=== PATIENT | female | born 1985 ===

== ENCOUNTER 2018-02-15 23:28 | Emergency (ER) | payer OTHER ==
--- NOTE | 2018-02-16 09:11 | OBHP ---
Datetime: 02/16/2018 00:12 IP Adm Impression: Term, intrauterine IP Admit Plan: Observation/Evaluation; Discharge home Admit Comment, IP Provider: 32 y/o at EGA 40.5 by LMP with TAIWO past 02/11/18, schedule d for induction on 02/19/18 who presents to [facility] with c/o pelvic pain and uterine Contx intermittent since 7 AM happening Q6 minutes, patient also reports brownish spotting and mucus vaginal discharge t felicita. Patient reports +FM. Patient denies LOF, vaginal bleeding, MARQUEZ, CP, blurry vision, dysuria, feve rs, N/V or other acute complaint. ROS: All systems reviewed and found unremarkable, except as per HPI. provider: Dr Garland Allergies: NKA PMHx: denies FMHx: Denies SUrgHx: none SOCHx: Denies ETOH, smoking or drug use MEDS: PNVit, Valacyclovir 500 QD( h/o genital herpes 3 years ago) LABS: 11/20/17: HIV neg, RPR neg, HB 5/7 ng, Rubella +/immune, GC/CL neg 5/7, GBS neg on 01/15 TDap 12/04, Blood O+ A/P 32 y/o at EGA 40.5 by LMP with TAIWO past 02/11/18, scheduled for induction on 8, Pelvic exam by Attending Dr Obregon with 1cm of cervical dilation. Patient is early Labor [facility] observation for: -Monitor maternal contraction and VS -Monitor FHR Patient to be sent home, instructed to return if CONTX increases Case discussed with attending Dr Mindi Chew MD PGY1 Extremities - PN: Normal Abdomen - PN: Normal Breast - PN: Not Done Heart - PN: Normal Thyroid - PN: Not Done Neurologic - PN: Normal HEENT - PN: Normal General - PN: Normal Comments, ACOG Physical Exam: Pelvic exam performed by attending IP Hx Assessment: The History has been Reviewed and is Current EGA AdmitDate IP: 40.5 IP Chief Complaint: Uterine contractions Dilatation, Provider: 1
[2018-02-16 09:49] VITALS: BP 144/85; PULSE 59
== END 2018-02-16 01:15 | disposition home or self-care (01) ==
LOC: H.EROB2 23:28
DX: O26.93 Pregnancy related conditions, unspecified, third trimester (principal); R10.2 Pelvic and perineal pain; O48.0 Post-term pregnancy; Z3A.40 40 weeks gestation of pregnancy

== ENCOUNTER 2018-02-17 03:33 | Inpatient (IN) | payer OTHER ==
[2018-02-17 07:45] VITALS: BMI 31.1
[2018-02-17] MEDS ORDERED: Lactated Ringer's 1,000 ML IV SCH (07:45)
--- NOTE | 2018-02-17 07:47 | OBHP ---
Datetime: 02/17/2018 04:16 IP Adm Impression: Term, intrauterine IP Admit Plan: Observation/Evaluation Admit Comment, IP Provider: 32 y/o at EGA 40.6 by LMP with TAIWO past 02/11/18, schedule d for induction on 02/19/18 who presents to [facility] with c/o pelvic pain and uterine Contx that has incr eased in frequency and intensity since yesterday around 7PM happening Q5 minutes now. Patient was exa mined yesterday in the tear down man hrs found to have 1 cm cervical dilation and was sent home with instructions to return if CONTX and pain increased. Patient reports vaginal spotting with mucus, but states she is unclear of LOF. Patient reports +FM. Patient denies MARQUEZ, CP, blurry vision, dysuria, fev ers, N/V or other acute complaint. ROS: All systems reviewed and found unremarkable, except as per HPI. provider: Dr Garland Allergies: NKA PMHx: denies FMHx: Denies SUrgHx: none SOCHx: Denies ETOH, smoking or drug use MEDS: PN Vitamin, Valacyclovir 500 QD (h/o genital herpes 3 years ago) LABS: 11/20/17: HIV neg, RPR neg, HB 5/7 ng, Rubella +/immune, GC/CL neg 01/15, GBS neg on 01/15 TDap 12/04, Blood O+ A/P 32 y/o at EGA 40.6 by LMP with TAIWO past 02/11/18, scheduled for induction on 8, presenting with uterine contx Q5min, 2cm of cervical dilation and 80% effacement, in early Labor -Monitor maternal contraction and VS -Monitor FHR Case discussed with attending Kelsie Chew MD PGY1 Addendum by Dr. Linder: I have evaluated the patient independently and I agree with the above. The patient has made cervical change to 4/80/-2, very uncomfortable. FHR = 145 mod noemí, TOCO = ctxning q 2-3 mins. Patient is in labor, will admit patient to unit Extremities - PN: Normal Abdomen - PN: Normal Breast - PN: Not Done Lungs - PN: Normal Heart - PN: Normal HEENT - PN: Normal General - PN: Normal Presentation-Admit: Vertex FHR - Baseline A Provider: 130-140s Comments, ACOG Physical Exam: Abdomen: Gravid IP Hx Assessment: The History has been Reviewed and is Current EGA AdmitDate IP: 40.6 Vital Signs Provider: Reviewed; Within Normal Limits IP Chief Complaint: Uterine contractions Dilatation, Provider: 2 Effacement, Provider: 80
[2018-02-17] MEDS: Lactated Ringer's 1,000 ML IV SCH (08:00)
[2018-02-17 08:38] LABS: BASO % 0.4 % (0.0-2.0); EOS % 0.1 % (0.0-4.0); HEMOGLOBIN 12.5 g/dL (12.0-16.0); LYMPH # 1.8 K/uL (1.0-4.3); LYMPH % 15.5 % (20.0-40.0); MEAN CELL VOLUME 93.9 fl (81.0-99.0); MEAN CORPUSCULAR HEMOGLOBIN 30.7 pg (27.0-31.0); MEAN CORPUSCULAR HGB CONC 32.7 g/dL (33.0-37.0); MEAN PLATELET VOLUME 10.6 fl (7.2-11.7); MONO # 0.8 K/uL (0.0-0.8); MONO % 6.8 % (0.0-10.0); NEUT % 77.2 % (50.0-75.0); RBC 4.06 Mil/uL (3.80-5.20); RED CELL DISTRIBUTION WIDTH 15.2 % (11.5-14.5); WHITE BLOOD COUNT 11.7 K/uL (4.8-10.8)
[2018-02-17] MEDS ORDERED: Oxytocin 30 UNIT 30 UNITS/500 ML BAG IV ONE ×2 (09:27→11:56)
[2018-02-17] MEDS ORDERED: OXYTOCIN/0.9 % NS 20 UNIT/1,000 ML BAG IV SCH (09:30)
--- NOTE | 2018-02-17 11:59 | OBPN ---
Datetime: 02/17/2018 11:54 IP Progress Impression: Reassuring heart rate IP Progress Plan: Augmentation; Anticipate Vaginal Delivery Membranes, Provider: Ruptured Contraction Comments Provider: OCC FHR - Baseline A Provider: 135 Presentation-Admit: Vertex IP Progress Note Comment: She feels more CTX; using nirtous oxide (enough for now acc to pt) Latnet phase of labor PLAN: will start Pitocin augmentation/disucsed pt to try nipple stimulation NICHD Accel Fetus A IP Provider: 15X15 FHR Category Provider Fetus A: Category I NICHD Variability Prov Fetus A: Moderate 6-25bpm Dilatation, Provider: 4 Effacement, Provider: 80 Station, Provider: -1 NICHD Decel Fetus A IP Provider: None Datetime: 02/17/2018 09:30 IP Informed Consent Obtain: Vaginal Delivery; Risks, Benefits and Alternatives Discussed IP Procedures: Artificial ROM Pool Provider: Negative Amniotic Fluid Color, Provider: Clear Datetime: 02/17/2018 04:16 Vital Signs Provider: Reviewed; Within Normal Limits
--- NOTE | 2018-02-17 19:56 | OBPN ---
Datetime: 02/17/2018 19:50 IP Progress Impression: Normal progression of labor; Reassuring heart rate IP Progress Plan: Augmentation; Anticipate Vaginal Delivery Membranes, Provider: Ruptured Contraction Comments Provider: 2-3m FHR - Baseline A Provider: 135 Presentation-Admit: Vertex IP Progress Note Comment: She feels CTX pain; using Nitrous with relief She was 8-9cm at 18:00pm SVE Anterior lip Pitocin at 2miu/h Monitor labor progress Active phase of labor NICHD Accel Fetus A IP Provider: 15X15 FHR Category Provider Fetus A: Category I NICHD Variability Prov Fetus A: Moderate 6-25bpm Dilatation, Provider: 9 Effacement, Provider: 100 Station, Provider: 0 NICHD Decel Fetus A IP Provider: None Datetime: 02/17/2018 16:30 IP Procedures: Intrauterine Pressure Catheter IP Fetus A Comments: 140 Gestation - Est Wks by US: 40.6 Vital Signs Provider: Reviewed; Within Normal Limits
[2018-02-18] MEDS ORDERED: ceFAZolin IV 2 gm in Dextrose 2 GM/50 ML BAG IVPB ONE ×2 (00:07→00:08)
--- NOTE | 2018-02-18 00:12 | OBPN ---
Datetime: 02/18/2018 00:05 IP Progress Impression: Arrest of dilatation/descent IP Informed Consent Obtain: Section Delivery; Risks, Benefits and Alternatives Discussed IP Progress Plan: Deliver- Section Membranes, Provider: Ruptured Contraction Comments Provider: 2-3m FHR - Baseline A Provider: 130 IP Progress Note Comment: She was fully/pushng since 21:00pm. Pitocin was increased until CTX q2-3m (currently at 8miu/h). Failure of descent PLAN: with translaoting service, condition and procedure explained to patient and her . In formed consent obtained. Prep for OR NICHD Accel Fetus A IP Provider: 15X15 FHR Category Provider Fetus A: Category II NICHD Variability Prov Fetus A: Minimal - Undetectable to <5bpm Dilatation, Provider: 10 Effacement, Provider: 100 Station, Provider: 1 NICHD Decel Fetus A IP Provider: Early
[2018-02-18] MEDS: Lactated Ringer's 1,000 ML IV SCH ×2 (00:15→00:50)
[2018-02-18] MEDS ORDERED: ePHEDrine 50 mg/ml Inj ONE (00:29)
[2018-02-18] MEDS ORDERED: Morphine 1 mg/ml preservative-free Inj(Duramorph) ONE (00:29)
[2018-02-18] MEDS ORDERED: Phenylephrine 10 mg/ml Inj ONE (00:30)
[2018-02-18] MEDS ORDERED: DiphenhydrAMINE 50 mg/ml Inj IVP PRN ×2 (01:18→04:51)
[2018-02-18] MEDS ORDERED: Oxycodone/Acetaminophen 5/325 mg Tab PO PRN ×3 (01:54→04:51)
[2018-02-18] MEDS ORDERED: Lactated Ringer's 1,000 ML IV SCH ×2 (02:00→04:51)
[2018-02-18] MEDS ORDERED: Simethicone 80 mg Chewtab PO SCH ×2 (04:00)
[2018-02-18] MEDS: Simethicone 80 mg Chewtab PO SCH ×4 (05:00→22:21)
[2018-02-18 08:33] LABS: HEMOGLOBIN 9.2 g/dL (12.0-16.0); MEAN CELL VOLUME 94.3 fl (81.0-99.0); MEAN CORPUSCULAR HEMOGLOBIN 30.9 pg (27.0-31.0); MEAN CORPUSCULAR HGB CONC 32.8 g/dL (33.0-37.0); RBC 2.98 Mil/uL (3.80-5.20); RED CELL DISTRIBUTION WIDTH 15.2 % (11.5-14.5); WHITE BLOOD COUNT 14.1 K/uL (4.8-10.8)
[2018-02-18] MEDS ORDERED: Multivitamin With Minerals Tab PO SCH ×2 (09:00)
[2018-02-18] MEDS: Multivitamin With Minerals Tab PO SCH (09:44)
[2018-02-19] MEDS ORDERED: Bisacodyl 5mg EC Tab PO PRN ×2 (01:54)
[2018-02-19] MEDS: Simethicone 80 mg Chewtab PO SCH ×4 (04:07→21:24)
[2018-02-19 06:57] LABS: BASO # 0.1 K/uL (0.0-0.2); BASO % 0.6 % (0.0-2.0); EOS # 0.1 K/uL (0.0-0.7); EOS % 0.6 % (0.0-4.0); HEMOGLOBIN 9.7 g/dL (12.0-16.0); LYMPH # 1.8 K/uL (1.0-4.3); LYMPH % 14.5 % (20.0-40.0); MEAN CELL VOLUME 92.5 fl (81.0-99.0); MEAN CORPUSCULAR HEMOGLOBIN 30.6 pg (27.0-31.0); MEAN CORPUSCULAR HGB CONC 33.1 g/dL (33.0-37.0); MEAN PLATELET VOLUME 9.9 fl (7.2-11.7); MONO # 1.2 K/uL (0.0-0.8); MONO % 9.3 % (0.0-10.0); NEUT # 9.5 K/uL (1.8-7.0); RBC 3.15 Mil/uL (3.80-5.20); RED CELL DISTRIBUTION WIDTH 15.6 % (11.5-14.5); WHITE BLOOD COUNT 12.7 K/uL (4.8-10.8)
[2018-02-19] MEDS: Multivitamin With Minerals Tab PO SCH (08:38)
--- NOTE | 2018-02-19 11:03 | OBPPN ---
Datetime: 02/19/2018 07:48 PP Pain Prov: Within normal limits PP Nausea Prov: Denies PP Flatus Prov: No PP BM Prov: No PP Breasts Prov: Not Done PP Heart Prov: Normal PP Lungs Prov: Normal PP Abdomen/Uterus Prov: Normal PP Lochia Prov: Normal PP Vulva/Perineum Prov: Not Done PP CVA Tenderness Prov: Normal PP Extremities Prov: Normal PP C/S Incision Prov: Normal PP Progress Prov: Normal PP Impression Prov: Normal progression PP Progress Note Prov: S: 32 yo s/p on 02/18/2018 due to failure of descent. Patient i s seen and examined at bedside this morning. No overnight events. Pt reports mild abdominal pain, but well controlled with pain meds. D/c perales, dressing clean, dry, intact. No nausea, advised to advanc e diet as tolerated.Unable to breast feed due to failure of desend of milk. Lochia is similar to mens es volume. PT have passed BM/gas and voided. Denies fever/chills, diarrhea, nausea/vomiting, chest pa in, dyspnea, and dizziness. O: Vitally stable GEN: Patient is resting comfortably in bed and is in no acute distress. Cardio: S1S2, no murmurs, gallops or rubs. Lungs: clear air entry sounds b/l, no wheezing Abdomen: BS+, tenderness to palpation. Incision scar noted, well healing with no exudate seen, dry and intact. Uterus is firm and at the level of the umbilicus. EXT: No edema, calves non-tender NEURO/PSYCH: AAOx3 Assessment/Plan: 32 yo s/p on 02/18/18 due to failure of descent. Pt remains afebril e, tolerating pain with medication, doing well on POD#1. OOB with caution 1. SCDs for DVT prophylaxis, encouraged ambulating 2. Percocet 5/325mg Q4H prn, and Motrin 600mg Q8H for pain. 3. Dulocolax 10 mg po Daily PRN for constipation 4. Colace 100mg po BID 5. Post op CBC: 9.2/28.1 6. Remove dressing 6. Anticipated d/c to home, 02/21/2018. Vital Signs Provider PP: Reviewed; Within Normal Limits
[2018-02-20] MEDS: Multivitamin With Minerals Tab PO SCH (08:21)
--- NOTE | 2018-02-20 08:34 | OP ---
PROCEDURE DATE: 02/18/2018 PREOPERATIVE DIAGNOSES: 1. Intrauterine at term. 2. Failure of descent. POSTOPERATIVE DIAGNOSES: 1. Intrauterine at term. 2. Failure of descent. PROCEDURE: Primary low transverse section via Pfannenstiel incision. SURGEON: David Lora DO. LANGUAGE ASSISTANT: Dr. Nino, PGY-2. ANESTHESIOLOGIST: Cruz Gomez MD TYPE OF ANESTHESIA: Spinal. OPERATIVE FINDINGS: Live female , delivered from a cephalic presentation. Clear amniotic fluid noted. score of 9 and 9 given at one and five minutes respectively. Placenta was delivered intact spontaneously. Ovaries and tubes appeared to be within normal limits grossly. All equipments, sponges and needles accounted for. She remained hemodynamically throughout the procedure. ESTIMATED BLOOD LOSS: 800 mL. DESCRIPTION OF PROCEDURE: Tiarra was brought to the operating room. Compression boots were placed on both lower extremities, and a catheter was used to drain the bladder with contents after successful spinal anesthesia by Dr. Gomez. She was placed in the supine position. She was then draped and prepped in the usual sterile manner. Once adequate anesthesia was obtained, the Pfannenstiel incision was made using a scalpel. The incision was then taken down to underlying fascia using electrocautery. The fascia was nicked in the midline and extended bilaterally using electrocautery. The inferior aspect of the fascia was grasped using two Joe clamps, tented up, and the rectus muscle was both bluntly and sharply dissected using electrocautery. The same was done with the superior aspect of the fascia. In the midline superiorly, the rectus muscle was bluntly. Peritoneum was identified, tented up using 2 Denia clamps and then incised using Metzenbaum scissors. The incision was then extended superiorly and inferiorly with direct visualization of the bladder and intestines. A bladder blade was then inserted. The lower uterine segment was noted to be very thin. Incision was made on the peritoneum above the bladder line using Metzenbaum scissors and then extended bilaterally using Metzenbaum scissors. A bladder flap was created digitally. A bladder blade was then inserted behind the bladder flap. A low transverse incision was then made using a scalpel. The incision was then extended bilaterally digitally. Thereafter, rupture of membranes was performed using forceps with teeth. Clear amniotic fluid was noted. The infant's head was delivered as atraumatically as possible, was bulb suctioned nasopharyngeally. The remainder of the was then delivered. was crying spontaneously. Infant's umbilical cord was clamped and cut. The infant was handed to automotive diagnostic technician in attendance. Cord bloods were obtained. Placenta was delivered intact spontaneously. Uterus was then exteriorized. Good contracture of the uterus was noted. IV Pitocin given. Uterus was cleared of debris and clots. Lower uterine segment was identified and grasped using two T clamps and two Allis clamps. A 0 Vicryl suture was used to close the first layer of the uterus in an interlocking fashion. Second layer of the uterus was closed using 0 Vicryl suture imbricating the first layer. Good hemostasis was assured. A 2-0 Vicryl suture was used to approximate the bladder flap in a running fashion. Good contracture of the uterus noted. Lower uterine segment noted to have hemostasis. Posterior cul-de-sac was irrigated and cleared of debris and clots. Uterus was placed back into the peritoneal cavity. Paracolic gutters were noted to be cleared of the debris and clots. The lower uterine aspect was inspected again. Noted to have good hemostasis. All equipments were removed and accounted for. A 0 Vicryl suture was then used to approximate the peritoneum in a running fashion. Rectus muscle was noted to have good hemostasis. A 0 Vicryl suture was used to approximate the rectus muscle in the midline x3. A 0 Vicryl suture was then used to close the fascial layer in a running fashion. A 2-0 plain suture was used to approximate the subcuticular layer x3. After hemostasis was assured, skin was then approximated using 3-0 Vicryl suture. Dermabond, Steri-Strips, and pressure bandage applied. She tolerated the procedure well and was transferred to the recovery room in stable condition. Urine output was noted to be adequate as well as noted to be clear. David Lora DO
[2018-02-20] MEDS: Simethicone 80 mg Chewtab PO SCH ×4 (09:13→21:24)
--- NOTE | 2018-02-20 10:05 | OBPPN ---
Datetime: 02/20/2018 05:57 PP Pain Prov: Within normal limits PP Nausea Prov: Denies PP Flatus Prov: Yes PP BM Prov: No PP Comments Phys Exam Prov: See progress note PP Impression Prov: Normal progression PP Plan Prov: Continue present management PP Progress Note Prov: S: 32 y/o s/p on 02/18/2018 due to failure of descend, today in her POD2. Patient is seen and examined at bedside this morning. No overnight events. Patient c/o pel elroy pain that is controlled w/ pain medication. Patient is OOB and ambulating w/o dizziness, is george ating regular diet w/o complains of N/V. Patient reports lochia is slightly more than menses in volum e, is voiding well w/o blood noted urine and reports passing flatus and had BM already. Patient denie s MARQUEZ, blurry vision, CP, SOB, fever, dysuria, or calf pain. Patient is w/o difficulties . O: VS WNL GEN: Sitting comfortably in bed, NAD HEENT: NCAT LUNGS: CTA, no wheezing CVS: RRR, S1, S2 present normal, no murmurs. ABD: No distended, BS +, uterus firm at umbilical level, Pfannenstiel incision is well approximate d, clean and intact. EXT: No edema, Aileen's negative A/P 32 y/o s/p C section on 02/18/18 due to failure of descend, today in her POD2 with normal post progression. -Regular diet -Encourage ambulation -Encourage -PNV 1 tab PO daily -Incentive Spirometer -Pain management: Ibuprofen 600 mg PO Q6h prn for mild pain, Percocet 1 tab Q4h PRN for moderate p ain, Percocet 2 tabs Q4h PRN for severe pain -D/C planning on 02/21/18 Kelsie Chew MD PGY1 Patient seen and examined by me this am. Agree with above resident note. --Dr. Potter-McQuilkin Vital Signs Provider PP: Reviewed; Within Normal Limits
[2018-02-21] MEDS: Simethicone 80 mg Chewtab PO SCH ×2 (04:20→09:41)
--- NOTE | 2018-02-21 09:04 | OBPPN ---
Datetime: 02/21/2018 05:54 PP Pain Prov: Within normal limits PP Nausea Prov: Denies PP Flatus Prov: Yes PP BM Prov: Yes PP Heart Prov: Normal PP Lungs Prov: Normal PP Abdomen/Uterus Prov: Normal PP Lochia Prov: Normal PP C/S Incision Prov: Normal PP Progress Prov: Normal PP Comments Phys Exam Prov: see progress note PP Impression Prov: Normal progression PP Plan Prov: Discharge PP Progress Note Prov: S: 32 y/o s/p on 02/18/2018 due to failure of descent, today in her POD3. Patient is seen and examined at bedside this morning. No overnight events. Patient c/o occ asional mild pelvic pain that is controlled w/ pain medication. Patient is OOB and ambulating w/o diz ziness, is tolerating regular diet w/o N/V. Patient reports lochia is less than menses in volume, is voiding well w/o blood noted in urine and reports passing flatus and had BM already. Patient denies H A, blurry vision, CP, SOB, fever, dysuria, or calf pain. Patient is w/o difficulties. O: VS WNL GEN: comfortably in bed, NAD HEENT: NCAT LUNGS: CTA, no wheezing CVS: RRR, S1, S2 present normal, no murmurs. ABD: No distended, BS +, uterus firm at umbilical level, surgical incision is well approximated, c lean and intact. EXT: mild edema+1, Aileen's negative A/P 32 y/o s/p C section on 02/18/18 due to failure of descend, today in her POD3 with normal post progression. -Regular diet -Encourage ambulation -Encourage -PNV 1 tab PO daily -Incentive Spirometer -Pain management: Ibuprofen 600 mg PO Q6h prn for mild pain, Percocet 1 tab Q4h PRN for moderate p ain, Percocet 2 tabs Q4h PRN for severe pain -D/C planning today Kelsie Chew MD PGY1 The patient was seen with the resident I agree with the note Vital Signs Provider PP: Reviewed; Within Normal Limits
--- NOTE | 2018-02-21 09:04 | OBDCSUM ---
Datetime: 02/21/2018 07:02 Discharged to, Provider: Home Follow up at, Provider: Julius Sanchez Instr Activity: Normal activity; May be up for meals; May Shower Disch Instr Diet: Regular Discharge Diagnosis, Provider: Term Delivered Discharge Time: 02/21/2018 10:00 Follow up in weeks, Provider: 1 week wound care Disch Referrals: None Disch Activity Restrictions: No exercising; Minimize stair-climbing; No sexual activity; Nothing in vagina - Bent, tampons, douche Discharge Comment, Provider: MAURO: 40.6wk Diagnosis: C-sec due failure of decent risk factors: none [place]: 02/18/18@ 1:06 Post- Summary: No complications during post- period. Lochia less than menses. Pt able to pass gas, BM, ambulate and pass urine. Tolerate regular diet, Fundus firm below umbilicus level. CBC post-: 9.2/29.1 Discharge Instructions: PNV 1 tab PO daily Ibuprofen 600mg 1 tab prn for mild-mod pain Percocet 5-325 mg Po given for severe pain ER precautions: If excessive bleeding or fever without relief from medication, go to ED PT was urged if feeling sad, mood swing, depression, neglect of baby, suicidal thoughts, homicidal thought should go to ER or call 911 for help F/U with OBGYN in 1 week for wound care F/U 4-6 week for PP visit Dorita PGY1 Contraception after Delivery: Undecided
[2018-02-21] MEDS: Multivitamin With Minerals Tab PO SCH (09:41)
[2018-02-21 19:31] VITALS: BP 117/71; PULSE 54; RESP 20; TEMP 98.2; O2SAT 99
== END 2018-02-21 14:44 | disposition home or self-care (01) | DRG 371 ==
LOC: H.EROB2 03:33 → H.L&D 07:44 → H.OB/GYN 02-18 04:20
PROVIDERS: ADMIT Obstetrics & Gynecology; ATTEND Obstetrics & Gynecology
PROC: 4A1HXCZ Monitoring of Products of Conception, Cardiac Rate, External Approach (ICD-10-PCS; 2018-02-17)
PROC: 10D00Z1 Extraction of Products of Conception, Low, Open Approach (ICD-10-PCS; principal; 2018-02-18)
DX: O32.4XX0 Maternal care for high head at term, not applicable or unspecified (principal); O62.0 Primary inadequate contractions; Z3A.40 40 weeks gestation of pregnancy; Z37.0 Single live birth